=== PATIENT | female | born 1995 | race Caucasian/White ===

== ENCOUNTER 2016-12-10 08:57 | Inpatient (IN) | payer MEDICAID ==
[~2016-12-10] VITALS: Ht 144.8 cm; Wt 67.7 kg
[~2016-12-10 08:57] MED LIST: ACET325T33 PO; PREN1TAB62 PO; UDROBDM PO
[2016-12-10 09:28] VITALS: Ht 144.8 cm; Wt 67.7 kg
[2016-12-10 09:29] VITALS: BP 109/62; PULSE 68; RESP 18
[2016-12-10] MEDS ORDERED: LACTATED RINGER'S 1,000 ML IV* STA (10:01)
[2016-12-10] MEDS ORDERED: TERBUTALINE 1 MG/ML INJ SC STA ×2 (10:05→13:11)
--- NOTE | 2016-12-10 10:39 | RADRPT ---
PROCEDURE: OB ultrasound for biophysical profile CLINICAL INDICATION: Contractions. Biophysical profile. . TECHNIQUE: Multiple sonographic images of the pelvis were obtained. Transabdominal view of the gr avid uterus are available for review. The images were reviewed on a PACS workstation. COMPARISON: None FINDINGS: breathing movement = 2/2 tone = 2/2 motion = 2/2 CHRIS = 2/2 Single intrauterine gestation is identified in cephalic position. heart rate is 128 bpm. Plac enta is anterior without evidence for abruption or previa. CHRIS measures 11.0 cm, within normal limi ts. IMPRESSION: 1. Single live intrauterine gestation. 2. Biophysical profile = 8/8. 3. CHRIS = 11.0 cm. RPTAT: EE .Dewayne Torrez MD, Date Time Electronically viewed and signed by .Dewayne Torrez MD, on 12/10/2016 10:39 .R/
[2016-12-10 11:53] LABS: ADD UMIC NO; UR BILIRUBIN (Dip) NEGATIVE (NEGATIVE); UR BLOOD (Dip) NEGATIVE (NEGATIVE); UR CLARITY CLEAR (CLEAR); UR COLOR LT. YELLOW (YELLOW); UR GLUCOSE (Dip) NEGATIVE (NEGATIVE); UR KETONES (Dip) NEGATIVE (NEGATIVE); UR LEUKOCYTE ESTERASE (Dip) NEGATIVE (NEGATIVE); UR NITRITE (Dip) NEGATIVE (NEGATIVE); UR TOTAL PROTEIN (Dip) NEGATIVE (NEGATIVE); UR UROBILINOGEN (Dip) 0.2 E.U./dL (0.1-1.0)
[2016-12-10] MEDS ORDERED: NIFEdipine 10 MG CAP ONE (17:17)
[2016-12-10 19:08] LABS: INR 1.02; PARTIAL THROMBOPLASTIN TIME 29.4 Sec (25.0-35.0); PROTIME 13.4 Sec (12.2-14.2)
[2016-12-10 19:20] LABS: ALBUMIN 3.7 g/dl (3.3-4.9); ALBUMIN/GLOBULIN RATIO 1.32; BILIRUBIN,INDIRECT 0.2 mg/dl (0-1.1); BILIRUBIN,TOTAL 0.2 mg/dl (0.2-1.3); CALCIUM 8.7 mg/dl (8.4-10.2); CREATININE 0.49 mg/dl (0.44-1.00); POTASSIUM 3.4 mmol/L (3.5-5.1); TOTAL PROTEIN 6.5 g/dl (6.1-8.1); URIC ACID 4.8 mg/dl (3.1-7.9)
[2016-12-10] MEDS ORDERED: LACTATED RINGER'S 1,000 ML IV SCH (21:26)
[2016-12-10] MEDS ORDERED: NIFEdipine 10 MG CAP PO SCH (22:00)
[2016-12-10] MEDS: LACTATED RINGER'S 1,000 ML IV SCH (22:00)
[2016-12-11] MEDS: NIFEdipine 10 MG CAP PO SCH ×2 (00:09→05:43)
--- NOTE | 2016-12-11 01:14 | TRIAGE ---
OB Triage Datetime Report Generated by CPN: 12/11/2016 01:14 Datetime: 12/11/2016 01:00 Labor Evaluation Frequency: none Monitor Mode: External Resting Tone [place]: Relaxed Heart Rate FHR Baseline Rate: 135 Monitor Mode: External US FHR Baseline Changes: No Baseline Change Variability: Moderate 6-25 bpm Accelerations: 15X15 Decelerations: None Category: Category I Datetime: 12/11/2016 00:06 Stage of : Antepartum Temperature Route: Oral Datetime: 12/11/2016 00:00 Labor Evaluation Frequency: none Monitor Mode: External Resting Tone [place]: Relaxed Heart Rate FHR Baseline Rate: 135 Monitor Mode: External US FHR Baseline Changes: No Baseline Change Variability: Moderate 6-25 bpm Accelerations: 15X15 Decelerations: None Category: Category I Datetime: 12/10/2016 23:00 Labor Evaluation Frequency: none Monitor Mode: External Resting Tone [place]: Relaxed Heart Rate FHR Baseline Rate: 140 Monitor Mode: External US FHR Baseline Changes: No Baseline Change Variability: Moderate 6-25 bpm Accelerations: 15X15 Decelerations: None Category: Category I Pain Assessment Pain Scale: 0 Pain Presence: None/Denies Datetime: 12/10/2016 22:41 Assessment Type: Admission Assessment Vaginal Bleeding: None Maternal Assessment Level of Consciousness: Fully Conscious DTR's/Clonus: DTRs 2+; No Clonus Headache: Denies Blurred Vision: No Respiratory Effort: Unlabored; Regular Rhythm; Equal Expansion Breath Sounds, Left: Clear and Equal Breath Sounds, Right: Clear and Equal Nausea/Vomiting: Denies RUQ Epigastric Pain: Denies Lower Extremities Edema: None Degree: None Upper Extremities Edema: None Degree: None Facial Edema: None Fall Risk Assessment History of Falling: (0) No Secondary Diagnosis: (0) No Ambulatory Aid: (0) Bedrest/Nurse Assist IV Therapy: (20) Yes Gait: (0) Normal/Bedrest/Immobile Mental Status: (0) Oriented to Own Ability Fall Score: 20 Fall Risk Score Definition: No Risk: No action required Heart Rate FHR Baseline Rate: 140 Variability: Moderate 6-25 bpm Accelerations: 15X15 Decelerations: None Category: Category I Pain Assessment Pain Scale: 0 Pain Presence: None/Denies Membrane Status: Intact Datetime: 12/10/2016 22:05 Stage of : Antepartum Temperature Route: Oral Datetime: 12/10/2016 21:33 Vaginal Exam Dilatation (cms): 0.0 Effacement (%): 0 Station: -3 Exam By: Avtar KESSLER RN Vaginal Bleeding: None Cervix, Consistency: Firm Cervix, Position: Posterior Datetime: 12/10/2016 21:00 Stage of : OB Triage Labor Evaluation Frequency: 2/HR Monitor Mode: External Duration (sec)2399: 80 Quality: Mild Pattern: Normal: <= 5 Contractions in 10 Minutes Resting Tone [place]: Relaxed Heart Rate FHR Baseline Rate: 145 Monitor Mode: External US FHR Baseline Changes: No Baseline Change Variability: Moderate 6-25 bpm Accelerations: 15X15 Decelerations: None Datetime: 12/10/2016 20:00 Labor Evaluation Frequency: 2/HR Monitor Mode: External Duration (sec)2399: 80 Quality: Mild Pattern: Normal: <= 5 Contractions in 10 Minutes Resting Tone [place]: Relaxed Heart Rate FHR Baseline Rate: 145 Monitor Mode: External US FHR Baseline Changes: No Baseline Change Variability: Moderate 6-25 bpm Accelerations: 15X15 Decelerations: Variable Category: Category II Datetime: 12/10/2016 19:18 Assessment Type: Triage Maternal Assessment Level of Consciousness: Fully Conscious DTR's/Clonus: DTRs 2+; No Clonus Headache: Denies Blurred Vision: No Respiratory Effort: Unlabored; Regular Rhythm; Equal Expansion Breath Sounds, Left: Clear and Equal Breath Sounds, Right: Clear and Equal Nausea/Vomiting: Denies RUQ Epigastric Pain: Denies Lower Extremities Edema: None Degree: None Upper Extremities Edema: None Degree: None Facial Edema: None Fall Risk Assessment History of Falling: (0) No Secondary Diagnosis: (0) No Ambulatory Aid: (0) Bedrest/Nurse Assist IV Therapy: (0) No Gait: (0) Normal/Bedrest/Immobile Mental Status: (0) Oriented to Own Ability Fall Score: 0 Fall Risk Score Definition: No Risk: No action required Datetime: 12/10/2016 19:17 Pain Assessment Pain Scale: 0 Pain Presence: None/Denies Datetime: 12/10/2016 18:42 Labor Evaluation Frequency: 0 Monitor Mode: External Duration (sec)2399: 0 Resting Tone [place]: Relaxed Heart Rate FHR Baseline Rate: 135 Monitor Mode: External US FHR Baseline Changes: No Baseline Change Variability: Moderate 6-25 bpm Accelerations: 15X15 Decelerations: None Category: Category I Datetime: 12/10/2016 17:59 Labor Evaluation Frequency: 0 Monitor Mode: External Duration (sec)2399: 0 Resting Tone [place]: Relaxed Heart Rate FHR Baseline Rate: 120 Monitor Mode: External US FHR Baseline Changes: No Baseline Change Variability: Moderate 6-25 bpm Accelerations: 15X15 Decelerations: None Category: Category I Datetime: 12/10/2016 16:49 Headache: Denies Labor Evaluation Frequency: 0 Monitor Mode: External Duration (sec)2399: 0 Resting Tone [place]: Relaxed Heart Rate FHR Baseline Rate: 120 Monitor Mode: External US FHR Baseline Changes: No Baseline Change Variability: Moderate 6-25 bpm Accelerations: 15X15 Decelerations: None Category: Category I Membrane Status: Intact Datetime: 12/10/2016 16:17 Labor Evaluation Frequency: 0 Monitor Mode: External Duration (sec)2399: 0 Resting Tone [place]: Relaxed Heart Rate FHR Baseline Rate: 120 Monitor Mode: External US FHR Baseline Changes: No Baseline Change Variability: Moderate 6-25 bpm Accelerations: 15X15 Decelerations: None Category: Category I Datetime: 12/10/2016 15:26 Labor Evaluation Frequency: 4-5 Monitor Mode: External Duration (sec)2399: 50-70 Quality: Mild Pattern: Normal: <= 5 Contractions in 10 Minutes Resting Tone [place]: Relaxed Heart Rate FHR Baseline Rate: 125 Monitor Mode: External US FHR Baseline Changes: No Baseline Change Variability: Moderate 6-25 bpm Accelerations: 15X15 Decelerations: Early; Variable Category: Category II Datetime: 12/10/2016 14:41 Labor Evaluation Frequency: 3-5 Monitor Mode: External Duration (sec)2399: 50-70 Quality: Mild Pattern: Normal: <= 5 Contractions in 10 Minutes Resting Tone [place]: Relaxed Heart Rate FHR Baseline Rate: 135 FHR Baseline Changes: No Baseline Change Variability: Moderate 6-25 bpm Accelerations: 15X15 Decelerations: None Category: Category I Datetime: 12/10/2016 14:00 Labor Evaluation Frequency: 0 Monitor Mode: External Duration (sec)2399: 0 Resting Tone [place]: Relaxed Heart Rate FHR Baseline Rate: 150 Monitor Mode: External US FHR Baseline Changes: No Baseline Change Variability: Moderate 6-25 bpm Accelerations: 15X15 Decelerations: None Category: Category I Datetime: 12/10/2016 13:43 Labor Evaluation Frequency: 3-5 Monitor Mode: External Duration (sec)2399: 40-50 Quality: Mild Pattern: Normal: <= 5 Contractions in 10 Minutes Resting Tone [place]: Relaxed Datetime: 12/10/2016 13:41 Labor Evaluation Frequency: 0 Monitor Mode: External Duration (sec)2399: 0 Quality: Mild Resting Tone [place]: Relaxed Heart Rate FHR Baseline Rate: 150 Monitor Mode: External US FHR Baseline Changes: No Baseline Change Variability: Moderate 6-25 bpm Accelerations: 15X15 Decelerations: None Category: Category I Datetime: 12/10/2016 13:06 Labor Evaluation Frequency: 0 Monitor Mode: External Duration (sec)2399: 0 Resting Tone [place]: Relaxed Heart Rate FHR Baseline Rate: 130 Monitor Mode: External US FHR Baseline Changes: No Baseline Change Variability: Moderate 6-25 bpm Accelerations: 15X15 Decelerations: None Category: Category I Datetime: 12/10/2016 12:05 Labor Evaluation Frequency: 4-5 Monitor Mode: External Duration (sec)2399: 50-60 Quality: Mild Pattern: Normal: <= 5 Contractions in 10 Minutes Resting Tone [place]: Relaxed Heart Rate FHR Baseline Rate: 125 Monitor Mode: External US FHR Baseline Changes: No Baseline Change Variability: Moderate 6-25 bpm Accelerations: 15X15 Decelerations: None Category: Category I Datetime: 12/10/2016 11:42 Labor Evaluation Frequency: 3-4 Monitor Mode: External Duration (sec)2399: 40-50 Quality: Mild Pattern: Normal: <= 5 Contractions in 10 Minutes Resting Tone [place]: Relaxed Heart Rate FHR Baseline Rate: 125 Monitor Mode: External US FHR Baseline Changes: No Baseline Change Variability: Moderate 6-25 bpm Accelerations: 15X15 Decelerations: Early; Variable Category: Category II Membrane Status: Intact Datetime: 12/10/2016 10:58 Maternal Assessment Level of Consciousness: Fully Conscious DTR's/Clonus: DTRs 2+; No Clonus Headache: Denies Blurred Vision: No Breath Sounds, Left: Clear and Equal Breath Sounds, Right: Clear and Equal Nausea/Vomiting: Denies RUQ Epigastric Pain: Denies Facial Edema: None Labor Evaluation Frequency: 3-4 Monitor Mode: External Duration (sec)2399: 40-50 Quality: Mild Pattern: Normal: <= 5 Contractions in 10 Minutes Resting Tone [place]: Relaxed Heart Rate FHR Baseline Rate: 135 Monitor Mode: External US FHR Baseline Changes: No Baseline Change Variability: Moderate 6-25 bpm Accelerations: 15X15 Decelerations: None Category: Category I Pain Assessment Pain Scale: 5 Pain Presence: Intermittent Pain Type: Sharp Pain Location: Abdomen Pain Goal: 0 Pain Relief Measures: Comfort Measures Membrane Status: Intact Datetime: 12/10/2016 09:55 Labor Evaluation Frequency: 4-5 Monitor Mode: External Duration (sec)2399: 40-50 Quality: Mild Pattern: Normal: <= 5 Contractions in 10 Minutes Resting Tone [place]: Relaxed Heart Rate FHR Baseline Rate: 135 Monitor Mode: External US FHR Baseline Changes: No Baseline Change Variability: Moderate 6-25 bpm Accelerations: 15X15 Decelerations: None Category: Category I Datetime: 12/10/2016 09:40 Time of Arrival: 12/10/2016 22:00 EGA: 36.1 Arrived By: Wheelchair Arrived From: Home Datetime: 12/10/2016 09:35 Labor Evaluation Frequency: 4-5 Monitor Mode: External Duration (sec)2399: 60-70 Quality: Mild Pattern: Normal: <= 5 Contractions in 10 Minutes Resting Tone [place]: Relaxed Heart Rate FHR Baseline Rate: 125 Monitor Mode: External US FHR Baseline Changes: No Baseline Change Variability: Moderate 6-25 bpm Accelerations: 15X15 Decelerations: None Category: Category I Datetime: 12/10/2016 09:18 Stage of : OB Triage Maternal Assessment Level of Consciousness: Fully Conscious DTR's/Clonus: DTRs 2+; No Clonus Headache: Denies Blurred Vision: No Respiratory Effort: Unlabored Breath Sounds, Left: Clear and Equal Breath Sounds, Right: Clear and Equal Nausea/Vomiting: Denies RUQ Epigastric Pain: Denies Facial Edema: None Labor Evaluation Frequency: 3-5 Monitor Mode: External Duration (sec)2399: 60-70 Quality: Mild Pattern: Normal: <= 5 Contractions in 10 Minutes Resting Tone [place]: Relaxed Heart Rate FHR Baseline Rate: 135 Monitor Mode: External US FHR Baseline Changes: No Baseline Change Variability: Moderate 6-25 bpm Accelerations: 15X15 Decelerations: None Category: Category I Pain Assessment Pain Scale: 8 Pain Presence: Intermittent Pain Type: Contraction Pain Location: Abdomen Pain Goal: 0 Pain Relief Measures: Comfort Measures Membrane Status: Intact Datetime: 12/10/2016 08:55 Time of Arrival: 12/10/2016 08:55 Arrived By: Wheelchair Arrived From: Home Chief Complaint: R/O LABOR Movement: Present Contractions: Irregular Time Contractions Began: 12/10/2016 03:00 Contractions: 3-4 Rupture of Membranes: Denies Vaginal Bleeding: None Vaginal Discharge: Denies Recent Sexual Intercouse: Denies Abdominal Trauma: Not Applicable Patient Complaints: Contractions Time Provider Notified: 12/10/2016 09:34 Provider Notified: SHERRI
[2016-12-11] MEDS: LACTATED RINGER'S 1,000 ML IV SCH (05:45)
--- NOTE | 2016-12-11 08:10 | HP ---
Date/Time of Note Date/Time of Note DATE: 12/11/16 TIME: 08:03 OB - History Hx of Present Free Text/Dictation 21 years old female 4 para 3 EDC of January 06, 2017 history of previous admitted to the hospital to rule out labor after admission and hydration and Procardia 20 mg every 6 hours contractions subsided at this time patient has no contraction no complain of any abdominal pain she is being discharged home with the instruction for labor advised to return to hospital when he starts contraction otherwise follow with [facility] on December 12. Chief Complaint: Rule out labor Estimated Due Date: Jan 06, 2017 : 4 Para: 3 Care: Limited Care Ultrasounds: Normal mid trimester US Obstetrical Complications: None Medical Complications: None Past Family/Social History * Past Medical, Surgical, Family and Obstetric Histories reviewed from chart. Rubella: immune RPR/VDRL: Negative GBS Status: Negative HBsAG: Negative OB Admission Exam Vital Signs Vital Signs Vital Signs Date Time Temp Pulse Resp B/P Pulse Ox O2 Delivery O2 Flow Rate FiO2 12/10/16 09:29 98.0 68 18 109/62 100 Room Air Physical Exam HEENT: WNL Heart: Rhythm Normal Lungs: Clear, Equal Abdomen: WNL Extremities: Normal Reflexes: Normal Cervical Dilatation: None Station: -2 Membranes: Intact Heart Rate: 130's Accelerations: Accelerations Present Varibility: Minimum Contractions on Admission: >10 Minutes Apart Intensity: Mild Last 72 hours Lab Results CBC & BMP 12/10/16 17:22 Liver Function Test 12/10/16 17:22 Alanine Aminotransferase (ALT/SGPT) 35 Albumin 3.7 Alkaline Phosphatase 191 H Aspartate Amino Transf (AST/SGOT) 27 Direct Bilirubin 0.00 Total Protein 6.5 OB Assessment/Plan Reason for admission: other (Patient was admitted for observation rule out labor) Plan: Other (Discharge home to take care of [facility] labor instructions given all question answered) BOUBACAR JAQUEZ MD Dec 11, 2016 08:10
--- NOTE | 2016-12-11 08:12 | DS ---
Date/Time of Note Date/Time of Note DATE: 12/11/16 TIME: 08:10 Discharge Summary Admission/Discharge Info Admit Date/Time Dec 10, 2016 at 16:45 Discharge Date/Time December 11 2016-08-30 Final Diagnosis 36 weeks. rule out labor Patient Condition: Good Procedures Observation and workup to rule out labor Hx of Present Illness at 36 weeks and 2 days history of previous came to the hospital with mild contraction to rule out Hospital Course Satisfactory uneventful Home Meds Reported Medications Vit-Iron Fumarate-FA ( Vitamin Tablet) 1 Each Tablet, 1 TAB PO DAILY, TAB 01/11/16 Discontinued Scripts Acetaminophen* (Tylenol*) 325 Mg Tablet, 2 TAB PO Q6 Y for PAIN AND OR ELEVATED TEMP, #20 TAB Prov:RAJINDER MARIE MD 09/03/15 Guaifenesin-Dextromethorphan* (Robitussin* DM) 100MG/10MG/5ML Syrup, 10 ML PO QID for COUGH, #120 ML Prov:RAJINDER MARIE MD 09/03/15 Follow-up Plan Labor instructions given advised to follow with the [facility] clinic on December 12, 2016 Primary Care Provider Care Physician No Primary Time spent on discharge: < 30 minutes Pending Labs Laboratory Tests Test 12/10/16 11:32 12/10/16 17:22 Urine Color LT. YELLOW (YELLOW) Urine Clarity CLEAR (CLEAR) Urine pH 7.0 (5.0-9.0) Urine Specific [place] 1.010 (1.003-1.030) Urine Ketones NEGATIVE (NEGATIVE) Urine Nitrite NEGATIVE (NEGATIVE) Urine Bilirubin NEGATIVE (NEGATIVE) Urine Urobilinogen 0.2 E.U./dL (0.1-1.0) Urine Leukocyte Esterase NEGATIVE (NEGATIVE) Urine Hemoglobin NEGATIVE (NEGATIVE) Urine Glucose NEGATIVE% (NEGATIVE) Urine Total Protein NEGATIVE (NEGATIVE) Prothrombin Time 13.4Sec (12.2-14.2) Prothrombin Time Ratio 1.0 INR International Normalized Ratio 1.02 Activated Partial Thromboplast Time 29.4Sec (25.0-35.0) Sodium Level 135mmol/L (135-144) Potassium Level 3.4mmol/L (3.5-5.1) Chloride Level 106mmol/L (97-110) Carbon Dioxide Level 22mmol/L (21-31) Anion Gap 10 (8-16) Blood Urea Nitrogen 4mg/dl (7-20) Creatinine 0.49mg/dl (0.44-1.00) Glucose Level 113mg/dl (70-220) Uric Acid 4.8mg/dl (3.1-7.9) Calcium Level 8.7mg/dl (8.4-10.2) Total Bilirubin 0.2mg/dl (0.2-1.3) Direct Bilirubin 0.00mg/dl (0.00-0.20) Indirect Bilirubin 0.2mg/dl (0-1.1) Aspartate Amino Transf (AST/SGOT) 27IU/L (15-46) Alanine Aminotransferase (ALT/SGPT) 35IU/L (13-69) Alkaline Phosphatase 191IU/L (42-121) Total Protein 6.5g/dl (6.1-8.1) Albumin 3.7g/dl (3.3-4.9) Globulin 2.80g/dl (1.3-3.2) Albumin/Globulin Ratio 1.32 BOUBACAR JAQUEZ MD Dec 11, 2016 08:12
[2016-12-11] MEDS ORDERED: MULTIVIT/MIN/FOLATE/IRON/PREN TAB PO SCH (09:00)
[2016-12-11] MEDS ORDERED: DOCUSATE SODIUM 100 MG CAP PO SCH (09:00)
== END 2016-12-11 10:45 | disposition home or self-care (01) | DRG 780 ==
LOC: OBT 08:57 → L-D 08:57 → OBT 16:45 → L-D 16:45 → OBG 22:00
PROVIDERS: ADMIT Obstetrics & Gynecology; ATTEND Obstetrics & Gynecology
DX: O47.00 False labor before 37 completed weeks of gestation, unspecified trimester (principal); Z3A.36 36 weeks gestation of pregnancy
CPT/HCPCS: 36415; 76818; 80053; 81003; 84560; 85610; 85730; 86592; 86900; 86901; 96360; 96361; G0463; J3105; J7120

== ENCOUNTER 2016-12-14 07:35 | Inpatient (IN) | payer MEDICAID ==
[~2016-12-14] VITALS: Ht 149.9 cm; Wt 67.6 kg
[~2016-12-14 07:35] MED LIST changes: -ACET325T33 PO; -UDROBDM PO
[2016-12-14 08:23] VITALS: BP 120/70; PULSE 68; Ht 149.9 cm; Wt 67.6 kg
[2016-12-14] MEDS ORDERED: NIFE10CA19 PO (08:25)
[2016-12-14] MEDS ORDERED: LACTATED RINGER'S 1,000 ML IV SCH (09:10)
[2016-12-14] MEDS ORDERED: MISOPROSTOL 200 MCG TAB PR PRN ×2 (09:30→18:00)
[2016-12-14] MEDS ORDERED: OXYTOCIN 30 UNITS/LR 500 ML IV PRN ×2 (09:30→18:00)
[2016-12-14] MEDS ORDERED: METHYLERGONOVINE 0.2 MG INJ IM PRN ×2 (09:30→18:00)
[2016-12-14] MEDS ORDERED: CEFAZOLIN 2 GM/50 ML (PMX) 50 ML IV SCH (09:30)
[2016-12-14] MEDS ORDERED: CARBOPROST 250 MCG INJ IM PRN ×2 (09:30→18:00)
[2016-12-14] MEDS ORDERED: OXYTOCIN 30 UNITS/LR 500 ML IV SCH (09:30)
[2016-12-14 09:33] LABS: ADD SCAN DIFF NO
[2016-12-14 09:37] LABS: BASOPHILS % 0.2 % (0.0-2.0); EOSINOPHILS % 0.2 % (0.0-7.0); HEMOGLOBIN 11.6 g/dl (12.0-16.0); LYMPHOCYTES # 1.7 10^3/ul (0.8-2.9); MEAN CORPUSCULAR HEMOGLOBIN 28.9 pg (29.0-33.0); MEAN CORPUSCULAR HGB CONC 34.1 g/dl (32.0-37.0); MEAN CORPUSCULAR VOLUME 84.6 fl (82.0-101.0); MEAN PLATELET VOLUME 9.7 fl (7.4-10.4); MONOCYTE # 0.5 10^3/ul (0.3-0.9); MONOCYTES % 4.4 % (0.0-11.0); NEUTROPHIL # 8.3 10^3/ul (1.6-7.5); NEUTROPHILS % 78.7 % (39.0-77.0); PLATELET COUNT 298 10^3/UL (140-415); RED BLOOD COUNT 4.02 10^6/ul (4.20-5.40); RED CELL DISTRIBUTION WIDTH 14.6 % (11.5-14.5); WHITE BLOOD COUNT 10.5 10^3/ul (4.8-10.8)
[2016-12-14 10:08] LABS: INR 0.91; PROTIME 12.2 Sec (12.2-14.2)
[2016-12-14 10:09] LABS: PARTIAL THROMBOPLASTIN TIME 28.3 Sec (25.0-35.0)
[2016-12-14] MEDS ORDERED: morphine SULFATE/PF (10 MG/10 ML) INJ ONE (13:00)
[2016-12-14] MEDS ORDERED: OXYTOCIN 10 UNIT INJ ONE (13:00)
[2016-12-14] MEDS ORDERED: METOCLOPRAMIDE 10 MG INJ ONE (13:00)
[2016-12-14] MEDS ORDERED: ONDANSETRON 4 MG INJ ONE (13:00)
[2016-12-14] MEDS ORDERED: OXYTOCIN 30 UNITS/LR 500 ML IV ONE (13:00)
[2016-12-14] MEDS ORDERED: EPHEDrine SULFATE 50 MG/5 ML SYG ONE (13:00)
[2016-12-14] MEDS ORDERED: MIDAZOLAM 1 MG/ML 2 ML INJ ONE (13:50)
[2016-12-14] MEDS ORDERED: KETOROLAC 30 MG INJ IV PRN (14:30)
[2016-12-14] MEDS ORDERED: ONDANSETRON 4 MG INJ IV PRN (14:30)
[2016-12-14] MEDS ORDERED: HYDROmorphONE 1 MG/ML SYG IV PRN ×2 (14:30)
[2016-12-14] MEDS ORDERED: DIPHENHYDRAMINE 50 MG INJ IV PRN (14:30)
[2016-12-14] MEDS ORDERED: morphine 2 MG INJ IV PRN ×2 (14:30)
[2016-12-14] MEDS ORDERED: EPHEDrine SULFATE 50 MG/5 ML SYG IV PRN (14:30)
[2016-12-14] MEDS ORDERED: morphine SULFATE/PF (10 MG/10 ML) INJ SPINAL ONE (14:30)
[2016-12-14] MEDS ORDERED: NALOXONE (0.4 MG/ML) INJ IV PRN (14:30)
[2016-12-14 17:30] VITALS: BP 109/59; PULSE 67; RESP 16
[2016-12-14] MEDS: OXYTOCIN 30 UNITS/LR 500 ML IV SCH ×2 (17:39→21:22)
--- NOTE | 2016-12-14 17:41 | HP ---
Date/Time of Note Date/Time of Note DATE: 12/14/16 TIME: 17:23 OB - History Hx of Present Free Text/Dictation This is a 21 years old female 4 para 3 EDC of January 06 admitted to [facility] in labor her TELEMETRY MONITOR history is consist of one normal vaginal delivery 2 previous section and in this she was diagnosed with breech presentation low line, partial placenta previa. She is being prepared to undergo repeat section for the third time complication of the surgery especially with placenta previa, breech presentation was discussed with the patient including but not limited to bowel bladder injury possibility of hysterectomy blood transfusion wound infection and hematoma was discussed with the patient she fully understood and willing to go ahead with the procedure Estimated Due Date: Jan 06, 2017 : 4 Para: 3 Care: Limited Care Ultrasounds: Abnormal US findings, Other (Breech presentation placenta previa) Obstetrical Complications: Other (Breech presentation placenta previa) Medical Complications: None Past Family/Social History * Past Medical, Surgical, Family and Obstetric Histories reviewed from chart. Rubella: immune RPR/VDRL: Negative GBS Status: Unknown HBsAG: Negative OB Admission Exam Vital Signs Vital Signs Vital Signs Date Time Temp Pulse Resp B/P Pulse Ox O2 Delivery O2 Flow Rate FiO2 12/14/16 08:23 98.4 68 120/70 Physical Exam HEENT: WNL Heart: Rhythm Normal Abdomen: WNL Extremities: Normal Heart Rate: 130's Accelerations: Accelerations Present Decelerations: Variable Decelerations Varibility: Moderate Contractions on Admission: < 5 Minutes Apart Intensity: Moderate Last 72 hours Lab Results CBC & BMP 12/14/16 09:28 OB Assessment/Plan Reason for admission: other (History of 2 previous section, in labor breech presentation, placenta previa) Plan: Other (History of 2 previous section for placenta previa breech presentation in labor) Other plan: Repeat BOUBACAR JAQUEZ MD Dec 14, 2016 17:33
[2016-12-14] MEDS ORDERED: OXYCODONE/ACETAMINOPHEN (5/325) TAB PO PRN (18:00)
[2016-12-14] MEDS ORDERED: ACETAMINOPHEN/CODEINE #3 TAB PO PRN (18:00)
[2016-12-14] MEDS ORDERED: NIFEdipine 10 MG CAP PO SCH (18:00)
[2016-12-14] MEDS: IBUPROFEN 600 MG TAB PO SCH ×2 (18:00→23:52)
[2016-12-14] MEDS ORDERED: CEFAZOLIN 1 GM/50 ML (PMX) 50 ML IVPB SCH (18:00)
[2016-12-14] MEDS ORDERED: LANOLIN 7 GM TUBE TOP PRN (18:00)
--- NOTE | 2016-12-14 18:51 | OPR ---
DATE OF OPERATION: 12/14/2016 PREOPERATIVE DIAGNOSES: 1. Intrauterine at 36 weeks and 5 days. 2. History of 2 previous sections, in active labor. complicated with placenta previa, breech presentation. POSTOPERATIVE DIAGNOSES: 1. Intrauterine at 36 weeks and 5 days. 2. History of 2 previous sections in active labor. complicated with placenta previa, breech presentation. OPERATION PERFORMED: Repeat transverse low cervical section. SURGEON: Boubacar Ruby MD BLINDSTITCH MACHINE OPERATOR: Ranjit Franklin MD ANESTHESIA: Spinal. ANESTHESIOLOGIST: Dr. Mitchell. FINDINGS: Live baby boy, 8 and 9. Baby weighed at 2830 grams. DETAILS OF THE PROCEDURE: Under satisfactory spinal anesthesia, the patient was prepped and draped and placed in supine position, tilted to the left. Pfannenstiel incision was made. Old scar was removed. Incision carried through the subcutaneous tissue. Bleeders brought under control with electrocautery. Fascia incised to the length of the incision. Rectus muscle divided in midline. Peritoneum exposed and entered through a transverse incision. Exploration of the abdomen gravid uterus, normal appearing tubes and ovaries. Lower segment of the uterus was extremely thinned out and there was a 3 x 3 cm window in the right side of the lower segment. The bladder flap gently was developed. Transverse incision was made in the lower segment of the uterus above the window. Amniotic sac expose ruptured. Clear amniotic fluid noted placenta anterior and above the presenting part which pushed to the side to make the delivery of the baby positive. A live baby boy was delivered from andree breech presentation. Shoulders delivered without any difficulty. Head delivered with Mauriceau maneuver. Nasal oropharyngeal suction was performed. Cord clamped after stopped stopped pulsation. Baby handed to the team for immediate attention. Patient received 20 units of Pitocin. Placenta delivered manually. Placenta, which was anterior to the baby's presenting part , which was andree breech, was delivered completely and submitted to pathology. Uterine cavity cleaned with wet sponge and drainage established. Uterus closed in 2 layers using Monocryl #1 in continuous fashion. Peritoneal cavity irrigated with warm saline. Sponge, needle and instrument reported to be correct. Abdominal peritoneum closed with 2-0 chromic catgut continuously. Rectus muscle approximated with few interrupted 2-0 chromic catgut. Fascia closed with #1 PDS in a continuous fashion. Subcutaneous tissue approximated with interrupted 2-0 chromic catgut. Skin closed with candace. Estimated blood loss 600 mL. Urine bag contained 200 mL of clear urine. Patient tolerated procedure well, transferred to recovery room in a good condition. Dictated By: BOUBACAR MCDONOUGH/VALERIA Conf#: [id number] DID#: [id number] MTDD
[2016-12-14 20:30] VITALS: BP 102/60; PULSE 60; RESP 18
[2016-12-14] MEDS: SENNA/DOCUSATE NA (8.6MG/50MG) TAB PO SCH (21:00)
[2016-12-15] VITALS: BP 98/54; PULSE 71; RESP 18
[2016-12-15] MEDS: OXYTOCIN 30 UNITS/LR 500 ML IV SCH ×2 (01:39→05:38)
[2016-12-15] MEDS: LACTATED RINGER'S 1,000 ML IV SCH ×2 (01:48→09:53)
[2016-12-15 04:15] VITALS: BP 94/56; PULSE 66; RESP 18
[2016-12-15] MEDS: IBUPROFEN 600 MG TAB PO SCH ×4 (05:39→23:55)
[2016-12-15 07:30] VITALS: BP 86/50; PULSE 67; RESP 18
[2016-12-15 07:54] LABS: ADD SCAN DIFF NO
[2016-12-15 08:08] LABS: BASOPHILS % 0.1 % (0.0-2.0); EOSINOPHILS % 0.2 % (0.0-7.0); HEMATOCRIT 30.9 % (37.0-47.0); HEMOGLOBIN 10.2 g/dl (12.0-16.0); LYMPHOCYTES # 1.6 10^3/ul (0.8-2.9); LYMPHOCYTES % 14.7 % (15.0-51.0); MEAN CORPUSCULAR HEMOGLOBIN 28.3 pg (29.0-33.0); MEAN CORPUSCULAR VOLUME 85.8 fl (82.0-101.0); MONOCYTE # 0.8 10^3/ul (0.3-0.9); MONOCYTES % 7.3 % (0.0-11.0); NEUTROPHIL # 8.3 10^3/ul (1.6-7.5); NEUTROPHILS % 77.3 % (39.0-77.0); PLATELET COUNT 270 10^3/UL (140-415); RED CELL DISTRIBUTION WIDTH 14.6 % (11.5-14.5); WHITE BLOOD COUNT 10.7 10^3/ul (4.8-10.8)
[2016-12-15] MEDS: SENNA/DOCUSATE NA (8.6MG/50MG) TAB PO SCH ×2 (08:55→22:45)
--- NOTE | 2016-12-15 13:06 | PN ---
Date/Time of Note Date/Time of Note DATE: 12/15/16 TIME: 13:04 OB Subjective Subjective Subjective Post repeat day 1 Afebrile vital signs are stable abdomen soft moderately distended bowel sounds present lochia moderate incision dry extremities normal ambulation encouraged Laboratory Tests Test 12/15/16 07:33 White Blood Count 10.710^3/ul Red Blood Count 3.6010^6/ul Hemoglobin 10.2g/dl Hematocrit 30.9% Mean Corpuscular Volume 85.8fl Mean Corpuscular Hemoglobin 28.3pg Mean Corpuscular Hemoglobin Concent 33.0g/dl Red Cell Distribution Width 14.6% Platelet Count 05159^3/UL Mean Platelet Volume 10.0fl Neutrophils % 77.3% Lymphocytes % 14.7% Monocytes % 7.3% Eosinophils % 0.2% Basophils % 0.1% Nucleated Red Blood Cells % 0.0/100WBC Neutrophils # 8.310^3/ul Lymphocytes # 1.610^3/ul Monocytes # 0.810^3/ul Eosinophils # 0.010^3/ul Basophils # 0.010^3/ul Nucleated Red Blood Cells # 0.010^3/ul Current Medications Medications (Trade) Dose Ordered Sig/Shmuel Route PRN Reason Start Time Stop Time Status Last Admin Dose Admin Lactated Ringer's 1,000 ml @ 125 mls/hr Q8H IV 12/14/16 09:10 12/14/16 17:41 DC 12/14/16 09:43 Cefazolin Sodium/ Dextrose 50 ml @ 100 mls/hr ONCE IV 12/14/16 09:30 12/14/16 17:41 DC Oxytocin/Lactated Ringer's 500 ml @ 125 mls/hr ONCE IV 12/14/16 09:30 12/14/16 17:41 DC 12/14/16 16:45 Oxytocin/Lactated Ringer's 500 ml @ 0 mls/hr ONCE PRN IV For Hemorrhage Management 12/14/16 09:30 12/14/16 17:41 DC Methylergonovine Maleate (Methergine) 0.2 mg ONCE PRN IM VAGINAL BLEEDING 12/14/16 09:30 12/14/16 17:42 DC Carboprost Tromethamine (Hemabate) 250 mcg ONCE PRN IM VAGINAL BLEEDING 12/14/16 09:30 12/14/16 17:42 DC Misoprostol (Cytotec) 1,000 mcg ONCE PRN [place] VAGINAL BLEEDING 12/14/16 09:30 12/14/16 17:42 DC Ephedrine Sulfate 50 mg 50 mg STK-MED ONCE .ROUTE 12/14/16 13:00 12/14/16 13:01 DC Oxytocin/Lactated Ringer's 500 ml @ ud STK-MED ONCE IV 12/14/16 13:00 12/14/16 13:01 DC Ondansetron HCl (Zofran Inj) 4 mg STK-MED ONCE .ROUTE 12/14/16 13:00 12/14/16 13:01 DC Metoclopramide HCl (Reglan) 10 mg STK-MED ONCE .ROUTE 12/14/16 13:00 12/14/16 13:01 DC Oxytocin (Oxytocin) 10 units STK-MED ONCE .ROUTE 12/14/16 13:00 12/14/16 13:01 DC Morphine Sulfate (Duramorph) 10 mg STK-MED ONCE .ROUTE 12/14/16 13:00 12/14/16 13:01 DC Midazolam HCl (Versed) 2 mg STK-MED ONCE .ROUTE 12/14/16 13:50 12/14/16 13:51 DC Naloxone HCl (Narcan) 0.1 mg Q2M PRN IV FOR RESP RATE 8 OR LESS 12/14/16 14:30 12/15/16 14:29 Ketorolac Tromethamine (Toradol) 30 mg Q6H PRN IV PAIN 12/14/16 14:30 12/15/16 14:29 12/15/16 11:17 Morphine Sulfate (morphine) 2 mg Q3H PRN IV PAIN LEVEL 1-5 12/14/16 14:30 12/15/16 14:29 Morphine Sulfate (morphine) 4 mg Q3H PRN IV PAIN LEVEL 6-10 12/14/16 14:30 12/15/16 14:29 Hydromorphone HCl (Dilaudid) 0.2 mg Q3H PRN IV PAIN LEVEL 1-5 12/14/16 14:30 12/15/16 14:29 Hydromorphone HCl (Dilaudid) 0.4 mg Q3H PRN IV PAIN LEVEL 6-10 12/14/16 14:30 12/15/16 14:29 Diphenhydramine HCl (Benadryl) 25 mg Q6H PRN IV ITCHING 12/14/16 14:30 12/15/16 14:29 Ondansetron HCl (Zofran Inj) 4 mg Q6H PRN IV NAUSEA AND/OR VOMITING 12/14/16 14:30 12/15/16 14:29 12/14/16 18:20 Morphine Sulfate (Duramorph) 0.3 mg GIVEN ANESTH ONCE SPINAL 12/14/16 14:30 12/14/16 14:32 DC Ephedrine Sulfate 5 mg [id number] PRN IV BLOOD PRESSURE SUPPORT 12/14/16 14:30 Acetaminophen/ Codeine Phosphate (Tylenol No.3) 1 tab Q4H PRN PO PAIN LEVEL 4-6 12/14/16 18:00 Acetaminophen/ Codeine Phosphate (Tylenol No.3) 2 tab Q4H PRN PO PAIN LEVEL 7-10 12/14/16 18:00 Oxycodone/ Acetaminophen (Percocet (5/ 325)) 1 tab Q4H PRN PO PAIN LEVEL 4-6 12/14/16 18:00 Oxycodone/ Acetaminophen (Percocet (5/ 325)) 2 tab Q4H PRN PO PAIN LEVEL 7-10 12/14/16 18:00 Ibuprofen (Motrin) 600 mg Q6 PO 12/14/16 18:00 Simethicone (Mylicon) 160 mg Q8H PRN PO DISTENSION/GAS/BLOATING 12/14/16 18:00 Senna/Docusate Sodium (Senokot-S) 1 tab BID PO 12/14/16 21:00 12/15/16 08:55 Lanolin (Iia-D-Jappbt) 1 applic BEDSIDE MEDICATION PRN TOP BEDSIDE FOR DAVID TO NIPPLES 12/14/16 18:00 Diphtheria/ Tetanus/Acell Pertussis 0.5 ml 0.5 ml ONCE ONCE IM* 12/17/16 09:00 12/17/16 09:01 Oxytocin/Lactated Ringer's 500 ml @ 0 mls/hr ONCE PRN IV For Hemorrhage Management 12/14/16 18:00 Methylergonovine Maleate (Methergine) 0.2 mg ONCE PRN IM VAGINAL BLEEDING 12/14/16 18:00 Carboprost Tromethamine (Hemabate) 250 mcg ONCE PRN IM VAGINAL BLEEDING 12/14/16 18:00 Misoprostol 1000 mcg 1,000 mcg ONCE PRN [place] VAGINAL BLEEDING 12/14/16 18:00 Cefazolin Sodium 50 ml @ 100 mls/hr ONCE IVPB 12/14/16 18:00 12/14/16 18:29 DC 12/14/16 18:15 Oxytocin/Lactated Ringer's 500 ml @ 125 mls/hr Q4H IV 12/14/16 17:39 12/15/16 07:30 DC 12/14/16 21:22 Nifedipine 10 mg 10 mg Q6 PO 12/14/16 18:00 12/14/16 18:52 DC Lactated Ringer's (Lr) 1,000 ml @ 125 mls/hr Q8H IV 12/15/16 01:30 12/15/16 14:00 12/15/16 09:53 BOUBACAR JAQUEZ MD Dec 15, 2016 13:05
[2016-12-15 15:31] VITALS: BP 109/69; PULSE 77; RESP 16
[2016-12-15] MEDS: ACETAMINOPHEN/CODEINE #3 TAB PO PRN ×2 (17:42→22:45)
[2016-12-15 20:00] VITALS: BP 109/66; PULSE 67; RESP 17
[2016-12-16 04:00] VITALS: BP 95/53; PULSE 60; RESP 17
[2016-12-16] MEDS: IBUPROFEN 600 MG TAB PO SCH ×3 (05:34→17:30)
[2016-12-16 08:20] VITALS: BP 101/60; PULSE 66; RESP 18
[2016-12-16] MEDS: SENNA/DOCUSATE NA (8.6MG/50MG) TAB PO SCH ×2 (08:53→21:49)
[2016-12-16 11:25] LABS: RUBELLA ANTIBODY - IGG 3.84 index
--- NOTE | 2016-12-16 15:34 | PN ---
Date/Time of Note Date/Time of Note DATE: 12/16/16 TIME: 15:32 OB Subjective Subjective Subjective Post day 2 Afebrile vital signs are stable abdomen soft incision inspected some of the candace were falling out but the incision had healed well it was covered with the Steri-Strips, abdomen soft good bowel sounds had normal bowel movement extremities normal plan of possible discharge a.mAlisa discussed BOUBACAR JAQUEZ MD Dec 16, 2016 15:34
[2016-12-16] MEDS: OXYCODONE/ACETAMINOPHEN (5/325) TAB PO PRN ×2 (17:54→22:58)
[2016-12-16 18:05] VITALS: BP 110/55; PULSE 61; RESP 16
[2016-12-16 20:00] VITALS: BP 112/62; PULSE 64; RESP 18
[2016-12-17] MEDS: IBUPROFEN 600 MG TAB PO SCH ×3 (00:07→14:03)
[2016-12-17] MEDS: OXYCODONE/ACETAMINOPHEN (5/325) TAB PO PRN (03:24)
[2016-12-17 04:01] VITALS: BP 100/59; PULSE 80; RESP 18
[2016-12-17 08:53] VITALS: BP 105/61; PULSE 60; RESP 18
[2016-12-17] MEDS: SENNA/DOCUSATE NA (8.6MG/50MG) TAB PO SCH (08:57)
[2016-12-17] MEDS ORDERED: DIPHTH/TET/ACEL PERTUSS (ADULT) 0.5 ML VIAL IM* ONE (09:00)
--- NOTE | 2016-12-17 11:42 | PD.PPDC ---
PARLIAMENTARY COUNSEL Discharge Instruction Condition Patient Condition: Good Diet Diet: Resume Regular Diet Activity/Restrictions Activity: Normal Activity May Shower Wound/Drain Care Instructions Wound/Drain Care Instructions: Remove Steri Strips in 1 week Follow-up Follow-up with Physician: 4, Day/Days Provider Information: Appointment clinic in 4 days to [facility] Return to clinic for [facility] Instructions: Fever greater than 101 Chills Worsening abdominal pain Excessive Vaginal Bleeding More than 2 pads per hour Unable to tolerate diet OB Instructions: Breast Tenderness Depression Blurried Vision Headache Surgical Instructions: Incisional Drainage Incisional Redness BOUBACAR JAQUEZ MD Dec 17, 2016 11:42
--- NOTE | 2016-12-17 11:45 | DS ---
Date/Time of Note Date/Time of Note DATE: 12/17/16 TIME: 11:43 Discharge Summary Admission/Discharge Info Admit Date/Time Dec 14, 2016 at 09:50 Discharge Date/Time December 17, 2016 at 1140 Discharge Diagnosis Primary due to breech presentation placenta previa Patient Condition: Good Procedures Primary Hx of Present Illness Term complicated with breech presentation and placenta. Hospital Course Satisfactory uneventful Home Meds Reported Medications Nifedipine* (Procardia*) 10 Mg Capsule, 10 MG PO Q6, CAP 12/14/16 Vit-Iron Fumarate-FA ( Vitamin Tablet) 1 Each Tablet, 1 TAB PO DAILY, TAB 01/11/16 Discontinued Scripts Acetaminophen* (Tylenol*) 325 Mg Tablet, 2 TAB PO Q6 Y for PAIN AND OR ELEVATED TEMP, #20 TAB Prov:RAJINDER MARIE MD 09/03/15 Guaifenesin-Dextromethorphan* (Robitussin* DM) 100MG/10MG/5ML Syrup, 10 ML PO QID for COUGH, #120 ML Prov:RAJINDER MARIE MD 09/03/15 Follow-up Plan Appointment clinic in 4 days to [facility] Primary Care Provider Care Physician No Primary Time spent on discharge: < 30 minutes BOUBACAR JAQUEZ MD Dec 17, 2016 11:45
[2016-12-17] MEDS ORDERED: NA PHOSPHATE/BIPHOS 133 ML ENEMA PR ONE (15:30)
== END 2016-12-17 19:10 | disposition home or self-care (01) | DRG 765 ==
LOC: OBT 07:35 → L-D 07:36 → OBT 09:27 → L-D 09:50 → PP1 17:20
PROVIDERS: ADMIT Obstetrics & Gynecology; ATTEND Obstetrics & Gynecology
PROC: 10D00Z1 Extraction of Products of Conception, Low, Open Approach (ICD-10-PCS; principal; 2016-12-14 10:30)
DX: O34.211 Maternal care for low transverse scar from previous cesarean delivery (principal); O44.03 Complete placenta previa NOS or without hemorrhage, third trimester; O32.1XX0 Maternal care for breech presentation, not applicable or unspecified; Z3A.36 36 weeks gestation of pregnancy; Z87.59 Personal history of other complications of pregnancy, childbirth and the puerperium; Z37.0 Single live birth; O76 Abnormality in fetal heart rate and rhythm complicating labor and delivery
CPT/HCPCS: 85025; 85610; 85730; 86592; 86703; 86762; 86850; 86900; 86901; 87340; 88307; 90715; 99464; G0463; J0690; J1885; J2250; J2274; J2405; J2590; J2765; J7120

== ENCOUNTER 2017-06-27 13:30 | Emergency (ER) | END 2017-06-27 15:45 | disposition home or self-care (01) ==